=== PATIENT | male | born 1995 | race Caucasian/White ===

== ENCOUNTER 2016-07-23 21:14 | Emergency (ER) | payer OTHER ==
[2016-07-23 21:39] LABS: BASO % 0.6 % (0.2-1.2); EOS # 0.1 10_X3_uL (0.0-0.5); EOS % 2.2 % (0.8-7.0); GRAN # 2.8 10_X3_uL (1.8-5.4); GRAN % 51.3 % (34.0-67.9); HEMOGLOBIN 17.5 g/dL (13.7-17.5); LYMPH % 36.7 % (21.8-53.1); MEAN CORPUSCULAR HEMOGLOBIN 32.3 pg (27.0-33.0); MEAN CORPUSCULAR HGB CONC 36.5 g/dL (32.0-36.0); MEAN CORPUSCULAR VOLUME 88.6 fL (79-92); MEAN PLATELET VOLUME 9.8 fl (7.5-11.5); MONO # 0.5 10_X3_uL (0.3-0.8); MONO % 9.2 % (5.3-12.2); PLATELET COUNT 222 x10_3/uL (163-337); RED BLOOD COUNT 5.42 x10_6/uL (4.6-6.1); RED CELL DISTRIBUTION WIDTH 12.5 % (11.6-14.4); WHITE BLOOD COUNT 5.5 x10_3/uL (4.2-9.1)
[2016-07-23 21:56] LABS: ALBUMIN 4.8 gm/dL (3.4-5.0); ALKALINE PHOSPHATASE 73 U/L (50-136); ALT/SGPT 8 U/L (7.53-40.17); AMYLASE 83 U/L (15.62-74.58); AST/SGOT 12 U/L (6.66-35.34); BILIRUBIN,TOTAL 1.02 mg/dL (0.0-1.0); BLOOD UREA NITROGEN 6 mg/dL (7-18); CALCIUM 9.6 mg/dL (8.7-10.7); CARBON DIOXIDE 28 mmol/L (21-32); GLUCOSE,RANDOM 98 mg/dL (70-99); LIPASE 20 U/L (6.75-60.75); POTASSIUM 3.9 mmol/L (3.5-5.1); SODIUM 141 mmol/L (136-145); TOTAL PROTEIN 7.2 gm/dL (6.4-8.2)
== END 2016-07-24 00:04 | disposition home or self-care (01) ==
LOC: ER 21:14
PROVIDERS: Emergency Medicine
DX: K52.9 Noninfective gastroenteritis and colitis, unspecified (principal); R10.9 Unspecified abdominal pain
CPT/HCPCS: 36415; 71020; 80053; 82150; 83690; 85025; 96374; 99070; 99284-25